=== PATIENT | female | born 1930 | race Caucasian/White ===

== ENCOUNTER 2019-02-27 16:33 | Inpatient (IN) | payer MEDICARE, BC ==
--- NOTE | 2019-02-27 18:42 | PCM.HP.2 ---
H&P History of Present Illness - General Date of Service: 02/27/19 Admit Problem/Dx: Admission Diagnosis/Problem Admission Diagnosis/Problem Impaired gait Source of Information: Patient, Family History Limitations: Reports: No Limitations - History of Present Illness Initial Comments - Free Text/Narative: in with c/o had an EGD performed in [place] today for a FB obstruction ( [place]). pt did not stop breathing or aspirate according to her dgtr. Her dgtr advised she is not able to manage the pt until her brother from OT comes in tomorrow. She is here as a swing bed overnight. She has a problem with her gait and her dgtr is concerned she may fall. no c/o cp or sob, no cough, no abd pain , no nv. is taking liquids without any problems Onset of Symptoms: Reports: Today Severity: Mild Context: Reports: Other (as above) Associated Symptoms: Reports: No Other Symptoms Past Medical History HEENT History: Reports: Impaired Vision, Sinusitis Musculoskeletal History: Reports: Arthritis, Fibromyalgia, Neck Pain, Chronic, Osteoarthritis Neurological History: Reports: Headaches, Chronic Social & Family History - Family History Family Medical History: Noncontributory H&P Review of Systems - Review of Systems: Review Of Systems: See Below General: Denies: No Symptoms, Fever, Chills HEENT: Reports: No Symptoms Pulmonary: Reports: No Symptoms. Denies: Shortness of Breath, Wheezing, Cough Cardiovascular: Reports: No Symptoms. Denies: Chest Pain Gastrointestinal: Reports: No Symptoms. Denies: Abdominal Pain, Nausea, Vomiting Musculoskeletal: Reports: No Symptoms Skin: Reports: No Symptoms. Denies: Rash Psychiatric: Reports: No Symptoms Neurological: Reports: No Symptoms Exam - Exam Exam: See Below - Vital Signs Weight: 46.72 kg - Exam General: Alert, Oriented, Cooperative Neck: Supple, Trachea Midline Lungs: Clear to Auscultation, Normal Respiratory Effort Cardiovascular: Regular Rate, Regular Rhythm, Systolic Murmur GI/Abdominal Exam: Normal Bowel Sounds, Soft, Non-Tender Back Exam: Normal Inspection, Full Range of Motion Extremities: Normal Inspection, Normal Range of Motion, Non-Tender, Normal Capillary Refill Peripheral Pulses: 2+: Radial (L), Radial (R) Skin: Warm, Dry, Intact Neuro Extensive - Mental Status: Alert, Oriented x3, Normal Mood/Affect Neuro Extensive - Motor, Sensory, Reflexes: Normal Gait (with help) Psychiatric: Alert, Normal Affect, Normal Mood Sepsis Event Note - Evaluation Sepsis Screening Result: No Definite Risk - Problem List (1) Gait instability SNOMED Code(s): 161416433, [id number] ICD Code: R26.81 - UNSTEADINESS ON FEET Status: Acute Priority: Medium Current Visit: Yes Problem List Initiated/Reviewed/Updated: Yes Orders Last 24hrs: Active Orders 24 hr Category Date Time Status Patient Status Manage Transfer [TRANSFER] Routine ADT 02/27/19 18:30 Active Patient Status [ADT] Routine ADT 02/27/19 18:32 Active Ambulate [RC] PER UNIT ROUTINE Care 02/27/19 18:33 Active Intake and Output [RC] PRN Care 02/27/19 18:32 Active Oxygen Therapy [RC] PRN Care 02/27/19 18:32 Active Up With Assistance [RC] ASDIRECTED Care 02/27/19 18:32 Active VTE/DVT Education [RC] PER UNIT ROUTINE Care 02/27/19 18:32 Active Vital Signs [RC] PER UNIT ROUTINE Care 02/27/19 18:32 Active Full Liquid Diet [DIET] Diet 02/28/19 Breakfast Active Resuscitation Status Routine Resus Stat 02/27/19 18:32 Ordered Assessment/Plan Comment:: will keep in a swing bed tonight and plan to dc home with family in am - Mortality Measure Prognosis:: Good
--- NOTE | 2019-02-28 09:02 | PCM.DCSUM1 ---
Discharge Summary - Hospital Course Free Text/Narrative:: in for gait instability to a swing bed until her son can help manage the pt at home Diagnosis: Stroke: No Modified Randolph Scale: No Symptoms at All Modified Yamilet Scale Score: 0 - Discharge Data Discharge Date: 02/28/19 Discharge Disposition: Home, Self-Care 01 Condition: Good - Referral to Home Health Primary Care Physician: Robel Alvarez MD - Discharge Diagnosis/Problem(s) (1) Gait instability SNOMED Code(s): 470083954, [id number] ICD Code: R26.81 - UNSTEADINESS ON FEET Status: Acute Priority: Medium Current Visit: Yes - Patient Instructions Diet: Heart Healthy Diet Activity: As Tolerated - Discharge Plan *PRESCRIPTION DRUG MONITORING PROGRAM REVIEWED*: Not Applicable *COPY OF PRESCRIPTION DRUG MONITORING REPORT IN PATIENT [place]: Not Applicable Home Medications: Home Meds ALPRAZolam [Alprazolam] 0.25 mg PO TID 02/27/19 [History] Gabapentin [Neurontin] 100 mg PO QID 02/27/19 [History] Oxygen Therapy Mode: Room Air - Discharge Summary/Plan Comment DC Time >30 min.: Yes - General Info Date of Service: 02/28/19 Admission Dx/Problem (Free Text: Admission Diagnosis/Problem Admission Diagnosis/Problem Impaired gait - Review of Systems General: Reports: No Symptoms. Denies: Fever HEENT: Reports: No Symptoms Pulmonary: Reports: No Symptoms. Denies: Shortness of Breath Cardiovascular: Reports: No Symptoms. Denies: Chest Pain Gastrointestinal: Reports: No Symptoms. Denies: Abdominal Pain, Nausea, Vomiting Musculoskeletal: Reports: No Symptoms Skin: Reports: No Symptoms Neurological: Reports: No Symptoms Psychiatric: Reports: No Symptoms - Patient Data Weight - Most Recent: 46.72 kg Lab Results - Last 24 hrs: Laboratory Results - last 24 hr 02/28/19 Range/Units 07:00 POC Glucose 152 H (75-105) mg/dl - Exam General: Reports: Alert, Oriented Neck: Reports: Supple Lungs: Reports: Clear to Auscultation, Normal Respiratory Effort Cardiovascular: Reports: Regular Rate, Regular Rhythm, Murmurs GI/Abdominal Exam: Soft, Non-Tender Back Exam: Reports: Normal Inspection, Full Range of Motion Extremities: Normal Inspection, Normal Range of Motion, Non-Tender, Normal Capillary Refill Skin: Reports: Warm, Dry, Intact Neurological: Reports: No New Focal Deficit Psy/Mental Status: Reports: Alert, Normal Affect, Normal Mood
== END 2019-02-28 12:00 | disposition home or self-care (01) | DRG 93 ==
LOC: UNDOADMIN 16:33 → CC.MS 16:33 → UNDODISIN 02-28 12:00
PROVIDERS: ADMIT Nurse Practitioner; ATTEND Family Medicine
DX: R26.81 Unsteadiness on feet (principal); H54.7 Unspecified visual loss; M79.7 Fibromyalgia; G89.29 Other chronic pain; M54.2 Cervicalgia; M19.90 Unspecified osteoarthritis, unspecified site
CPT/HCPCS: 82962

== ENCOUNTER 2019-04-30 10:32 | Inpatient (IN) | payer MEDICARE, BC ==
[2019-04-30] MEDS ORDERED: Sodium Chloride 0.9% 10 ML Syringe FLUSH PRN (10:33)
[2019-04-30 11:48] LABS: CHLORIDE,CL 93 mEq/L (98-106); SODIUM,NA 126 mEq/L (136-145)
--- NOTE | 2019-04-30 12:49 | EDM.PDOC ---
ED HPI GENERAL MEDICAL PROBLEM - General Chief Complaint: Neuro Symptoms/Deficits Stated Complaint: lethargy Time Seen by Provider: 04/30/19 10:32 Source of Information: Reports: Patient, Family, Long Term Records History Limitations: Reports: Other (patient is hard of hearing, does answer questions appropriately when asked) - History of Present Illness INITIAL COMMENTS - FREE TEXT/NARRATIVE: Patient presents to ER per EMS with complaints of lethargy, "dazed". Staff at [facility] reports she was dazed, staring off and not responding as well as per her usual. EMS reports does answer questions appropriately, has equal strengths but is lethargic. On arrival, patient is lethargic. Complains of being cold when asked. Complains of neck pain. Denies chest pain, shortness of breath or nausea. Family reports she has recently been recovering from influenza but was doing much better, was walking around and eating and drinking well. Now seems very weak and sleepy. No cough. No fevers but patient is shaking from feeling cold. Onset: Today, Sudden Duration: Hour(s):, Constant Location: Reports: Generalized Quality: Reports: Ache Severity: Mild Associated Symptoms: Reports: Fever/Chills, Weakness. Denies: Confusion, Chest Pain, Cough, Loss of Appetite, Nausea/Vomiting, Shortness of Breath Posterior Neck Pain Score (Numeric/FACES): 4 - Related Data Allergies Allergy/AdvReac Type Severity Reaction Status Date / Time Unable to Assess Allergy Unverified 02/27/19 18:51 Home Meds: Home Meds ALPRAZolam [Alprazolam] 0.25 mg PO TID 02/27/19 [History] Gabapentin [Neurontin] 300 mg PO BID 02/27/19 [History] Albuterol Sulfate [Proair Digihaler] 2 puff INH Q4H PRN 04/30/19 [History] Arformoterol [Brovana] 1 inh INH BID 04/30/19 [History] Ascorbate Calcium [Vitamin C] 500 mg PO BID 04/30/19 [History] Budesonide [Pulmicort] 1 inh INH BID 04/30/19 [History] Calcium Carbonate/Vitamin D3 [Calcium Carb 500 MG] 1,500 mg PO DAILY 04/30/19 [ History] Cholecalciferol (Vitamin D3) [Vitamin D3] 1 cap PO DAILY 04/30/19 [History] Cimetidine 1 tab PO TIDAC 04/30/19 [History] Lutein Extract/Zeaxanthin Ext [Lutein 15 MG Softgel] 1 tab PO DAILY 04/30/19 [ History] Magnesium Oxide [Magnesium] 2 tab PO DAILY 04/30/19 [History] Montelukast [Singulair] 10 mg PO BEDTIME 04/30/19 [History] [place]-3/DHA/Epa/Fish Oil [[place]-3 Fish Oil EC 1,000 mg] 1 cap PO DAILY 04/30/19 [History] Ranitidine [Zantac] 150 mg PO DAILY PRN 04/30/19 [History] diphenhydrAMINE [Benadryl] 25 mg PO Q6H PRN 04/30/19 [History] trandolapriL [Trandolapril] 1 tab PO BEDTIME 04/30/19 [History] Past Medical History HEENT History: Reports: Impaired Vision, Sinusitis Musculoskeletal History: Reports: Arthritis, Fibromyalgia, Neck Pain, Chronic, Osteoarthritis Neurological History: Reports: Headaches, Chronic - Infectious Disease History Infectious Disease History: Reports: Influenza Social & Family History - Family History Family Medical History: Noncontributory - Tobacco Use Smoking Status *Q: Never Smoker - Recreational Drug Use Recreational Drug Use: No ED ROS GENERAL - Review of Systems Review Of Systems: See Below Constitutional: Reports: Chills, Malaise, Weakness, Fatigue, Decreased Appetite (decreased appetite today). Denies: Fever HEENT: Reports: Rhinitis. Denies: Ear Pain, Throat Swelling Respiratory: Denies: Shortness of Breath, Cough Cardiovascular: Denies: Chest Pain, Edema, Lightheadedness Endocrine: Reports: Fatigue GI/Abdominal: Denies: Abdominal Pain : Reports: No Symptoms Musculoskeletal: Reports: Neck Pain Skin: Reports: Bruising (right leg from fall several days ago) Neurological: Reports: Difficulty Walking, Weakness. Denies: Dizziness, Headache, Syncope - Physical Exam Exam: See Below Exam Limited By: No Limitations General Appearance: WD/WN, No Apparent Distress, Lethargic Eye Exam: Bilateral Eye: EOMI, PERRL Ears: Normal External Exam, Normal TMs Nose: Normal Inspection, Normal Mucosa, No Blood Throat/Mouth: Normal Inspection, Normal Oropharynx Head Exam: Normocephalic Neck: Normal Inspection, Supple, Non-Tender Respiratory/Chest: No Respiratory Distress, Lungs Clear, Normal Breath Sounds Cardiovascular: Regular Rate, Rhythm GI/Abdominal: Normal Bowel Sounds, Soft, Non-Tender Neuro Exam (Abbreviated): Oriented Extremities: Other (right knee swollen from recent fall) Skin Exam: Warm, Dry, Ecchymosis (right thigh) Course - Vital Signs Last Recorded V/S: Last Vital Signs Temp 98.0 F 04/30/19 11:28 Pulse 84 04/30/19 11:28 Resp 18 04/30/19 11:28 BP 156/75 H 04/30/19 11:28 Pulse Ox 97 04/30/19 11:28 - Orders/Labs/Meds Orders: Active Orders 24 hr Category Date Time Status Chest 1V Frontal [CR] Stat Exams 04/30/19 10:33 Ordered Head wo Cont [CT] Stat Exams 04/30/19 10:36 Taken CULTURE BLOOD [BC] Stat Lab 04/30/19 11:05 Results CULTURE BLOOD [BC] Stat Lab 04/30/19 11:15 Received Sodium Chloride 0.9% [Normal Saline] 1,000 ml Med 04/30/19 10:45 Active IV ASDIRECTED Sodium Chloride 0.9% [Saline Flush] Med 04/30/19 10:33 Active 10 ml FLUSH ASDIRECTED PRN Blood Culture x2 Reflex Set [OM.PC] Stat Oth 04/30/19 10:33 Ordered Saline Lock Insert [OM.PC] Stat Oth 04/30/19 10:33 Ordered Medication Orders Sodium Chloride (Normal Saline) 1,000 mls @ 125 mls/hr IV ASDIRECTED YESIKA Sodium Chloride (Saline Flush) 10 ml FLUSH ASDIRECTED PRN PRN Reason: Keep Vein Open Labs: Laboratory Tests 04/30/19 04/30/19 04/30/19 Range/Units 10:33 10:33 10:33 WBC 6.7 (5.0-10.0) 10^3/uL RBC 3.74 L (4.00-5.50) 10^6/uL Hgb 11.7 L (12.0-16.0) g/dL Hct 34.1 L (37.0-47.0) % MCV 91.2 (82.0-94.0) fL MCH 31.3 (27.0-32.0) pg MCHC 34.3 (33.0-38.0) g/dL RDW Coeff of Kathryn 12.9 (11.0-15.0) % Plt Count 276 (150-400) 10^3/uL Add Manual Diff Yes Neutrophils % (Manual) 73 (35-85) % Lymphocytes % (Manual) 11 L (21-55) % Monocytes % (Manual) 15 H (2-12) % Eosinophils % (Manual) 1 (0-5) % Sodium 126 L (136-145) mEq/L Potassium 4.1 (3.5-5.0) mEq/L Chloride 93 L (98-106) mEq/L Carbon Dioxide 24 (21-32) mmol/L BUN 11 (7-18) mg/dL Creatinine 0.8 (0.6-1.0) mg/dL Est Cr Clr Drug Dosing 34.81 mL/min Estimated GFR (MDRD) > 60 (>=60) mL/min Glucose 99 (75-99) mg/dL Lactic Acid (0.4-2.0) mmol/L Calcium 8.2 L (8.4-10.1) mg/dL Total Bilirubin 0.8 (0.0-1.0) mg/dL AST 27 (15-37) U/L ALT 23 (12-78) U/L Alkaline Phosphatase 87 (46-116) U/L Troponin I < 0.017 (0.00-0.06) ng/mL C-Reactive Protein 11.0 H (0.2-0.8) mg/dL Total Protein 6.4 (6.4-8.2) g/dL Albumin 2.7 L (3.4-5.0) g/dL Urine Color Yellow (YELLOW) Urine Appearance Clear (CLEAR) Urine pH 6.5 (4.5-8.0) Ur Specific [place] 1.015 (1.003-1.020) Urine Protein Negative (NEGATIVE) mg/dL Urine Glucose (UA) Negative (NEGATIVE) mg/dL Urine Ketones Negative (NEGATIVE) mg/dL Urine Occult Blood Trace-intact H (NEGATIVE) Urine Nitrite Negative (NEGATIVE) Urine Bilirubin Negative (NEGATIVE) Urine Urobilinogen 0.2 (0.2-1.0) EU/dL Ur Leukocyte Esterase Small H (NEGATIVE) Urine RBC 0-5 (0-5) /HPF Urine WBC 0-5 (0-5) /HPF Ur Squamous Epith Cells Few H (NOT SEEN) /HPF 04/30/19 Range/Units 10:33 WBC (5.0-10.0) 10^3/uL RBC (4.00-5.50) 10^6/uL Hgb (12.0-16.0) g/dL Hct (37.0-47.0) % MCV (82.0-94.0) fL MCH (27.0-32.0) pg MCHC (33.0-38.0) g/dL RDW Coeff of Kathryn (11.0-15.0) % Plt Count (150-400) 10^3/uL Add Manual Diff Neutrophils % (Manual) (35-85) % Lymphocytes % (Manual) (21-55) % Monocytes % (Manual) (2-12) % Eosinophils % (Manual) (0-5) % Sodium (136-145) mEq/L Potassium (3.5-5.0) mEq/L Chloride (98-106) mEq/L Carbon Dioxide (21-32) mmol/L BUN (7-18) mg/dL Creatinine (0.6-1.0) mg/dL Est Cr Clr Drug Dosing mL/min Estimated GFR (MDRD) (>=60) mL/min Glucose (75-99) mg/dL Lactic Acid 1.0 (0.4-2.0) mmol/L Calcium (8.4-10.1) mg/dL Total Bilirubin (0.0-1.0) mg/dL AST (15-37) U/L ALT (12-78) U/L Alkaline Phosphatase (46-116) U/L Troponin I (0.00-0.06) ng/mL C-Reactive Protein (0.2-0.8) mg/dL Total Protein (6.4-8.2) g/dL Albumin (3.4-5.0) g/dL Urine Color (YELLOW) Urine Appearance (CLEAR) Urine pH (4.5-8.0) Ur Specific [place] (1.003-1.020) Urine Protein (NEGATIVE) mg/dL Urine Glucose (UA) (NEGATIVE) mg/dL Urine Ketones (NEGATIVE) mg/dL Urine Occult Blood (NEGATIVE) Urine Nitrite (NEGATIVE) Urine Bilirubin (NEGATIVE) Urine Urobilinogen (0.2-1.0) EU/dL Ur Leukocyte Esterase (NEGATIVE) Urine RBC (0-5) /HPF Urine WBC (0-5) /HPF Ur Squamous Epith Cells (NOT SEEN) /HPF Meds: Medications Generic Name Dose Route Start Last Admin Trade Name Freq PRN Reason Stop Dose Admin Sodium Chloride 1,000 mls @ 125 mls/hr 04/30/19 10:45 Normal Saline IV ASDIRECTED YESIKA Sodium Chloride 10 ml 04/30/19 10:33 Saline Flush FLUSH ASDIRECTED PRN Keep Vein Open - Re-Assessments/Exams Free Text/Narrative Re-Assessment/Exam: 04/30/19 Labs are noted. Sodium low at 126, trace of leukocytes in urine. Awaiting radiology report of chest. Head CT negative for acute changes except parasinus disease. Discussed with family. Will admit to observation for hyponatremia, lethargy. Start IV normal saline. Repeat labs in am. Departure - Departure Time of Disposition: 12:54 Disposition: Refer to Observation Condition: Fair Clinical Impression: Hyponatremia - Discharge Information *PRESCRIPTION DRUG MONITORING PROGRAM REVIEWED*: No *COPY OF PRESCRIPTION DRUG MONITORING REPORT IN PATIENT [place]: No Sepsis Event Note - Evaluation Sepsis Screening Result: No Definite Risk - Focused Exam Vital Signs: Vital Signs Temp Pulse Resp BP Pulse Ox 04/30/19 11:28 98.0 F 84 18 156/75 H 97 04/30/19 10:34 98.6 F 86 20 170/84 H 99 Date Exam was Performed: 04/30/19 Time Exam was Performed: 12:44 - Problem List & Annotations (1) Hyponatremia SNOMED Code(s): 20470132 Code(s): E87.1 - HYPO-OSMOLALITY AND HYPONATREMIA Status: Acute Priority : High Current Visit: Yes (2) Weakness SNOMED Code(s): 16436903 Code(s): R53.1 - WEAKNESS Status: Acute Current Visit: Yes (3) Sinusitis SNOMED Code(s): 10166963 Code(s): J32.9 - CHRONIC SINUSITIS, UNSPECIFIED Status: Acute Priority: Medium Current Visit: Yes Qualifiers: Sinusitis location: pansinusitis Chronicity: acute (4) Cystitis SNOMED Code(s): 55348814 Code(s): N30.90 - CYSTITIS, UNSPECIFIED WITHOUT HEMATURIA Status: Acute Priority: High Current Visit: Yes - Problem List Review Problem List Initiated/Reviewed/Updated: Yes - My Orders Last 24 Hours: My Active Orders 04/30/19 10:33 Chest 1V Frontal [CR] Stat Sodium Chloride 0.9% [Saline Flush] 10 ml FLUSH ASDIRECTED PRN Blood Culture x2 Reflex Set [OM.PC] Stat Saline Lock Insert [OM.PC] Stat 04/30/19 10:36 Head wo Cont [CT] Stat 04/30/19 10:45 Sodium Chloride 0.9% [Normal Saline] 1,000 ml IV ASDIRECTED 04/30/19 11:05 CULTURE BLOOD [BC] Stat 04/30/19 11:15 CULTURE BLOOD [BC] Stat - Assessment/Plan Admission H&P: Please use this note as an admission H&P Last 24 Hours: My Active Orders 04/30/19 10:33 Chest 1V Frontal [CR] Stat Sodium Chloride 0.9% [Saline Flush] 10 ml FLUSH ASDIRECTED PRN Blood Culture x2 Reflex Set [OM.PC] Stat Saline Lock Insert [OM.PC] Stat 04/30/19 10:36 Head wo Cont [CT] Stat 04/30/19 10:45 Sodium Chloride 0.9% [Normal Saline] 1,000 ml IV ASDIRECTED 04/30/19 11:05 CULTURE BLOOD [BC] Stat 04/30/19 11:15 CULTURE BLOOD [BC] Stat Assessment:: Hyponatremia Weakness Plan: ADmit observation. Start IV Normal saline. Rocephin for sinus infection and mild cystitis. Repeat labs in am.
[2019-04-30] MEDS ORDERED: Non-Formulary Medication 1 Each (Ranitidine [Zantac] 150 MG) PO PRN (13:04)
[2019-04-30] MEDS ORDERED: Ondansetron 4 MG Tab.DIS PO PRN (13:04)
[2019-04-30] MEDS ORDERED: Acetaminophen 325 MG Tab PO PRN (13:04)
[2019-04-30] MEDS ORDERED: Albuterol 8 GM Inhaler INH PRN (13:14)
[2019-04-30] MEDS ORDERED: ALPRAZolam 0.25 MG Tab PO SCH (14:00)
[2019-04-30] MEDS: cefTRIAXone 1 GM Vial IVPUSH SCH (14:24)
[2019-04-30] MEDS: Sodium Chloride 0.9% 1,000 ML IV SCH ×2 (14:25→22:20)
[2019-04-30] MEDS: Enoxaparin 40 MG/0.4 ML Syringe SUBCUT SCH (14:25)
[2019-04-30] MEDS: Gabapentin 100 MG Cap**OWN MED PO SCH ×2 (14:40→16:09)
[2019-04-30] MEDS: ALPRAZOLAM 0.25 MG PO SCH ×3 (14:41→19:43)
[2019-04-30] MEDS ORDERED: CIMETIDINE PO SCH (17:00)
[2019-04-30] MEDS: Gabapentin 300 MG Cap PO SCH (19:39)
[2019-04-30] MEDS: TRANDOLAPRIL 2 MG PO SCH (19:40)
[2019-04-30] MEDS: BUDESONIDE NAS SCH (19:45)
[2019-04-30] MEDS: BUDESONIDE 0.25 MG/2 ML NEB SCH (19:47)
[2019-04-30] MEDS: ARFORMOTEROL 15 MCG/2 ML NEB SCH (19:53)
[2019-04-30] MEDS ORDERED: Montelukast 10 MG Tab PO SCH (20:00)
[2019-05-01] MEDS: Gabapentin 100 MG Cap**OWN MED PO SCH ×3 (01:34→16:15)
[2019-05-01] MEDS: Sodium Chloride 0.9% 1,000 ML IV SCH ×3 (05:38→23:31)
[2019-05-01 07:47] LABS: CHLORIDE,CL 99 mEq/L (98-106); SODIUM,NA 132 mEq/L (136-145)
[2019-05-01] MEDS: Gabapentin 300 MG Cap PO SCH ×2 (07:58→20:01)
[2019-05-01] MEDS: BUDESONIDE 0.25 MG/2 ML NEB SCH ×2 (08:04→19:58)
[2019-05-01] MEDS: ARFORMOTEROL 15 MCG/2 ML NEB SCH ×2 (08:05→19:53)
[2019-05-01] MEDS: ALPRAZOLAM 0.25 MG PO SCH ×4 (08:06→20:04)
[2019-05-01] MEDS: BUDESONIDE NAS SCH ×2 (08:06→20:01)
[2019-05-01] MEDS ORDERED: ALPRAZolam 0.25 MG Tab PO PRN (08:14)
--- NOTE | 2019-05-01 09:58 | PCM.PN ---
- General Info Date of Service: 05/01/19 Admission Dx/Problem (Free Text): Hyponatremia Weakness Pansinusitis Functional Status: Reports: Tolerating Diet, Ambulating. Denies: Pain Controlled (complaining of a headache this am) - Review of Systems General: Reports: Fever, Weakness, Fatigue, Malaise HEENT: Reports: Headaches, Sinus Congestion. Denies: Sore Throat Pulmonary: Denies: Shortness of Breath, Cough Cardiovascular: Denies: Chest Pain, Edema, Lightheadedness Gastrointestinal: Denies: Abdominal Pain, Nausea, Vomiting Genitourinary: Reports: No Symptoms Musculoskeletal: Reports: Leg Pain Skin: Reports: Bruising (fell earlier in the week) Neurological: Reports: Weakness - Patient Data Vitals - Most Recent: Last Vital Signs Temp 99.1 F 05/01/19 04:00 Pulse 80 05/01/19 04:00 Resp 20 05/01/19 04:00 BP 163/60 H 05/01/19 04:00 Pulse Ox 97 05/01/19 04:00 Weight - Most Recent: 114 lb I&O - Last 24 Hours: Intake & Output 04/30/19 05/01/19 05/01/19 22:59 06:59 14:59 Intake Total 990 913 Balance 990 913 Lab Results Last 24 Hours: Laboratory Results - last 24 hr 04/30/19 04/30/19 04/30/19 Range/Units 10:33 10:33 10:33 WBC 6.7 (5.0-10.0) 10^3/uL RBC 3.74 L (4.00-5.50) 10^6/uL Hgb 11.7 L (12.0-16.0) g/dL Hct 34.1 L (37.0-47.0) % MCV 91.2 (82.0-94.0) fL MCH 31.3 (27.0-32.0) pg MCHC 34.3 (33.0-38.0) g/dL RDW Coeff of Kathryn 12.9 (11.0-15.0) % Plt Count 276 (150-400) 10^3/uL Neut % (Auto) (35-85) % Lymph % (Auto) (10-55) % [place] % (Auto) (0-16) % Eos % (Auto) (0-5) % Baso % (Auto) (0-3) % Neut # (Auto) (1.80-7.00) 10^3/uL Lymph # (Auto) (1.00-4.80) 10^3/uL [place] # (Auto) (0.00-0.80) 10^3/uL Eos # (Auto) (0.00-0.45) 10^3/uL Baso # (Auto) 10^3/uL Add Manual Diff Yes Neutrophils % (Manual) 73 (35-85) % Lymphocytes % (Manual) 11 L (21-55) % Monocytes % (Manual) 15 H (2-12) % Eosinophils % (Manual) 1 (0-5) % Sodium 126 L (136-145) mEq/L Potassium 4.1 (3.5-5.0) mEq/L Chloride 93 L (98-106) mEq/L Carbon Dioxide 24 (21-32) mmol/L BUN 11 (7-18) mg/dL Creatinine 0.8 (0.6-1.0) mg/dL Est Cr Clr Drug Dosing 34.81 mL/min Estimated GFR (MDRD) > 60 (>=60) mL/min Glucose 99 (75-99) mg/dL Lactic Acid (0.4-2.0) mmol/L Calcium 8.2 L (8.4-10.1) mg/dL Total Bilirubin 0.8 (0.0-1.0) mg/dL AST 27 (15-37) U/L ALT 23 (12-78) U/L Alkaline Phosphatase 87 (46-116) U/L Troponin I < 0.017 (0.00-0.06) ng/mL C-Reactive Protein 11.0 H (0.2-0.8) mg/dL Total Protein 6.4 (6.4-8.2) g/dL Albumin 2.7 L (3.4-5.0) g/dL Urine Color Yellow (YELLOW) Urine Appearance Clear (CLEAR) Urine pH 6.5 (4.5-8.0) Ur Specific [employer] 1.015 (1.003-1.020) Urine Protein Negative (NEGATIVE) mg/dL Urine Glucose (UA) Negative (NEGATIVE) mg/dL Urine Ketones Negative (NEGATIVE) mg/dL Urine Occult Blood Trace-intact H (NEGATIVE) Urine Nitrite Negative (NEGATIVE) Urine Bilirubin Negative (NEGATIVE) Urine Urobilinogen 0.2 (0.2-1.0) EU/dL Ur Leukocyte Esterase Small H (NEGATIVE) Urine RBC 0-5 (0-5) /HPF Urine WBC 0-5 (0-5) /HPF Ur Squamous Epith Cells Few H (NOT SEEN) /HPF 04/30/19 05/01/19 05/01/19 Range/Units 10:33 05:11 05:11 WBC 5.1 (5.0-10.0) 10^3/uL RBC 3.59 L (4.00-5.50) 10^6/uL Hgb 11.2 L (12.0-16.0) g/dL Hct 33.2 L (37.0-47.0) % MCV 92.5 (82.0-94.0) fL MCH 31.2 (27.0-32.0) pg MCHC 33.7 (33.0-38.0) g/dL RDW Coeff of Kathryn 13.0 (11.0-15.0) % Plt Count 333 (150-400) 10^3/uL Neut % (Auto) 57.4 (35-85) % Lymph % (Auto) 19.4 (10-55) % [place] % (Auto) 22.2 H (0-16) % Eos % (Auto) 0.8 (0-5) % Baso % (Auto) 0.2 (0-3) % Neut # (Auto) 2.93 (1.80-7.00) 10^3/uL Lymph # (Auto) 0.99 L (1.00-4.80) 10^3/uL [place] # (Auto) 1.13 H (0.00-0.80) 10^3/uL Eos # (Auto) 0.04 (0.00-0.45) 10^3/uL Baso # (Auto) 0.01 10^3/uL Add Manual Diff Neutrophils % (Manual) (35-85) % Lymphocytes % (Manual) (21-55) % Monocytes % (Manual) (2-12) % Eosinophils % (Manual) (0-5) % Sodium 132 L (136-145) mEq/L Potassium 4.0 (3.5-5.0) mEq/L Chloride 99 (98-106) mEq/L Carbon Dioxide 26 (21-32) mmol/L BUN 6 L (7-18) mg/dL Creatinine 0.7 (0.6-1.0) mg/dL Est Cr Clr Drug Dosing 45.35 mL/min Estimated GFR (MDRD) > 60 (>=60) mL/min Glucose 98 (75-99) mg/dL Lactic Acid 1.0 (0.4-2.0) mmol/L Calcium 8.0 L (8.4-10.1) mg/dL Total Bilirubin (0.0-1.0) mg/dL AST (15-37) U/L ALT (12-78) U/L Alkaline Phosphatase (46-116) U/L Troponin I (0.00-0.06) ng/mL C-Reactive Protein 9.9 H (0.2-0.8) mg/dL Total Protein (6.4-8.2) g/dL Albumin (3.4-5.0) g/dL Urine Color (YELLOW) Urine Appearance (CLEAR) Urine pH (4.5-8.0) Ur Specific [employer] (1.003-1.020) Urine Protein (NEGATIVE) mg/dL Urine Glucose (UA) (NEGATIVE) mg/dL Urine Ketones (NEGATIVE) mg/dL Urine Occult Blood (NEGATIVE) Urine Nitrite (NEGATIVE) Urine Bilirubin (NEGATIVE) Urine Urobilinogen (0.2-1.0) EU/dL Ur Leukocyte Esterase (NEGATIVE) Urine RBC (0-5) /HPF Urine WBC (0-5) /HPF Ur Squamous Epith Cells (NOT SEEN) /HPF Liu Results Last 24 Hours: Microbiology 04/30/19 11:05 Anaerobic Blood Culture - Final Blood - Venous Med Orders - Current: Current Medications Acetaminophen (Tylenol) 650 mg PO Q4H PRN PRN Reason: Pain (Mild 1-3)/fever Albuterol (Ventolin Hfa) 0 gm INH Q4H PRN PRN Reason: dyspnea Alprazolam (Xanax) 0.25 mg PO BEDTIME [facility] Last Admin: 04/30/19 19:43 Dose: 0.25 mg Alprazolam (Xanax) 0.125 mg PO TID@0800,1200,1600 [facility] Last Admin: 05/01/19 08:06 Dose: 0.125 mg Alprazolam (Xanax) 0.125 mg PO Q6H PRN PRN Reason: Anxiety Ceftriaxone Sodium (Rocephin) 1 gm IVPUSH Q24H [facility] Last Admin: 04/30/19 14:24 Dose: 1 gm Enoxaparin Sodium (Lovenox) 40 mg SUBCUT Q24H [facility] Last Admin: 04/30/19 14:25 Dose: 40 mg Gabapentin (Neurontin) 300 mg PO BID [facility] Last Admin: 05/01/19 07:58 Dose: 300 mg Gabapentin (Neurontin) 200 mg PO TID@0200,1200,1700 [facility] Last Admin: 05/01/19 01:34 Dose: 100 mg Sodium Chloride (Normal Saline) 1,000 mls @ 50 mls/hr IV ASDIRECTED [facility] Last Admin: 05/01/19 05:38 Dose: 125 mls/hr Montelukast Sodium (Singulair) 10 mg PO DAILY@1300 [facility] Trandolapril [ Trandolapril] 2mg Tab 0 tab PO BEDTIME [facility] Last Admin: 04/30/19 19:40 Dose: 0.5 tab Ondansetron HCl (Zofran Odt) 4 mg PO Q4H PRN PRN Reason: nausea, able to take PO (Arformoterol [ Brovana] 15mcg/2 Ml Inh. Evi.)*Pt Own Med* 0 each NEB BIDRT [facility] Last Admin: 05/01/19 08:05 Dose: 1 each (Budesonide [ Pulmicort] 0.25 Mg/2ml Inh)*Pt Own Med* 0 each NEB BIDRT [facility] Last Admin: 05/01/19 08:04 Dose: 1 each (Budesonide [ Pulmicort] For Nasal Rinse )*Pt Own Med* 0 each MENA BID [facility] Last Admin: 05/01/19 08:06 Dose: 1 each Discontinued Medications Alprazolam (Xanax) 0.25 mg PO TID [facility] Last Admin: 04/30/19 14:34 Dose: Not Given Montelukast Sodium (Singulair) 10 mg PO BEDTIME [facility] Last Admin: 04/30/19 14:44 Dose: 10 mg Non-Formulary Medication (Cimetidine [Cimetidine]) 1 tab PO TIDAC [facility] Last Admin: 04/30/19 17:10 Dose: Not Given Non-Formulary Medication (Ranitidine [Zantac]) 150 mg PO DAILY PRN PRN Reason: Heartburn Sodium Chloride (Saline Flush) 10 ml FLUSH ASDIRECTED PRN PRN Reason: Keep Vein Open - Exam General: Alert, Oriented HEENT: Mucous Membr. Moist/[place] Neck: Supple Lungs: Clear to Auscultation, Normal Respiratory Effort Cardiovascular: Regular Rate, Regular Rhythm GI/Abdominal Exam: Normal Bowel Sounds, Soft, Non-Tender Extremities: Other (patient has tenderness to right leg. Mild swelling and bruising at the knee from recent fall.) Skin: Warm, Dry, Ecchymosis Neurological: No New Focal Deficit Sepsis Event Note - Evaluation Sepsis Screening Result: No Definite Risk - Focused Exam Vital Signs: Vital Signs Temp Pulse Resp BP Pulse Ox 05/01/19 04:00 99.1 F 80 20 163/60 H 97 05/01/19 00:00 99.5 F 82 20 156/62 H 97 Date Exam was Performed: 05/01/19 Time Exam was Performed: 09:52 - Problem List & Annotations (1) Hyponatremia SNOMED Code(s): 85318018 Code(s): E87.1 - HYPO-OSMOLALITY AND HYPONATREMIA Status: Acute Priority : High Current Visit: Yes (2) Weakness SNOMED Code(s): 33340036 Code(s): R53.1 - WEAKNESS Status: Acute Priority: High Current Visit: Yes (3) Sinusitis SNOMED Code(s): 61646898 Code(s): J32.9 - CHRONIC SINUSITIS, UNSPECIFIED Status: Acute Priority: Medium Current Visit: Yes Qualifiers: Sinusitis location: pansinusitis Chronicity: acute (4) Cystitis SNOMED Code(s): 09655764 Code(s): N30.90 - CYSTITIS, UNSPECIFIED WITHOUT HEMATURIA Status: Acute Priority: High Current Visit: Yes (5) Palliative care patient SNOMED Code(s): 451319618 Code(s): Z51.5 - ENCOUNTER FOR PALLIATIVE CARE Status: Acute Priority: High Current Visit: Yes - Problem List Review Problem List Initiated/Reviewed/Updated: Yes - My Orders Last 24 Hours: My Active Orders 04/30/19 10:33 Chest 1V Frontal [CR] Stat 04/30/19 10:36 Head wo Cont [CT] Stat 04/30/19 10:45 Sodium Chloride 0.9% [Normal Saline] 1,000 ml IV ASDIRECTED 04/30/19 11:05 CULTURE BLOOD [BC] Stat 04/30/19 11:15 CULTURE BLOOD [BC] Stat 04/30/19 12:57 Resuscitation Status Routine 04/30/19 13:04 Cardiac Monitoring [RC] 0800,2000 Oxygen Therapy [RC] .PRN Up With Assistance [RC] ASDIRECTED Vital Signs [RC] 0800,1200,1600,2000,0000,0400 Acetaminophen [Tylenol] 650 mg PO Q4H PRN Ondansetron [Zofran ODT] 4 mg PO Q4H PRN 04/30/19 13:14 Albuterol [Ventolin HFA] 0 gm INH Q4H PRN 04/30/19 14:00 Enoxaparin [Lovenox] 40 mg SUBCUT Q24H cefTRIAXone [Rocephin] 1 gm IVPUSH Q24H 04/30/19 16:00 ALPRAZolam [Xanax] 0.125 mg PO TID@0800,1200,1600 04/30/19 17:00 Gabapentin [Neurontin] 200 mg PO TID@0200,1200,1700 04/30/19 20:00 ALPRAZolam [Xanax] 0.25 mg PO BEDTIME Gabapentin [Neurontin] 300 mg PO BID Patient's Own Medication [Ptom] 0 each MENA BID Patient's Own Medication [Ptom] 0 each NEB BIDRT Patient's Own Medication [Ptom] 0 each NEB BIDRT trandolapriL [Trandolapril] 0 tab PO BEDTIME 04/30/19 Lunch Regular Diet [DIET] 05/01/19 08:14 ALPRAZolam [Xanax] 0.125 mg PO Q6H PRN 05/01/19 08:15 Patient Status [ADT] Routine 05/01/19 13:00 Montelukast [Singulair] 10 mg PO DAILY@1300 05/02/19 05:11 BASIC METABOLIC PANEL,BMP [CHEM] AM C-REACTIVE PROTEIN [CHEM] AM CBC WITH AUTO DIFF [HEME] AM - Assessment Assessment:: Hyponatremia Weakness Pansinusitis Mild Cystitis Palliative Care Patient. - Plan Plan:: Patient more alert this am but states still feels fatigue and "so weak". Is ambulating to the bathroom with her walker. Has headache today in the frontal and parietal areas. CT scan done yesterday did show pansinusitis. Is currently on Rocephin. Lung sounds are clear. Has swelling, bruising and tenderness to right leg from previous fall 5 days ago. Recovering also from influenza. Sodium today has improved to 132. CRP down to 9.9. Temps high of 100.4 during the night. Will transfer to acute inpatient due to ongoing weakness, hyponatremia and temps. Repeat labs in am. Decrease IV fluids to 50 ml/hr. Continue Rocephin.
[2019-05-01] MEDS ORDERED: Acetaminophen 325 MG Tab PO PRN (10:15)
[2019-05-01] MEDS ORDERED: Montelukast 10 MG Tab PO SCH (13:00)
[2019-05-01] MEDS: cefTRIAXone 1 GM Vial IVPUSH SCH (14:01)
[2019-05-01] MEDS: Enoxaparin 40 MG/0.4 ML Syringe SUBCUT SCH (14:01)
[2019-05-01] MEDS: ACETAMINOPHEN 325 MG PO PRN ×2 (14:10→23:31)
[2019-05-01] MEDS: TRANDOLAPRIL 2 MG PO SCH (20:02)
[2019-05-02] MEDS: Gabapentin 100 MG Cap**OWN MED PO SCH (02:46)
[2019-05-02 07:32] LABS: CHLORIDE,CL 101 mEq/L (98-106); SODIUM,NA 133 mEq/L (136-145)
[2019-05-02] MEDS: Gabapentin 300 MG Cap PO SCH (07:54)
[2019-05-02] MEDS: ARFORMOTEROL 15 MCG/2 ML NEB SCH (07:55)
[2019-05-02] MEDS: BUDESONIDE 0.25 MG/2 ML NEB SCH (07:55)
[2019-05-02] MEDS: ALPRAZOLAM 0.25 MG PO SCH (07:57)
[2019-05-02] MEDS ORDERED: BUDESONIDE NAS SCH (08:00)
--- NOTE | 2019-05-02 08:57 | PCM.DCSUM1 ---
Discharge Summary - Hospital Course Free Text/Narrative:: see previous notes for details, the pt did have mild low sodium and today the labs were repeated and is normal, BCx are neg, no fever, the pt did c/o weakness yesterday but today advised she feel much better, The pt can be dc home today and continue current home meds, will f/u with pcp this week HPI Initial Comments: AMS and weakness Diagnosis: Stroke: No Modified [place] Scale: No Symptoms at All Modified [place] Scale Score: 0 - Discharge Data Discharge Date: 05/02/19 Discharge Disposition: Home, Self-Care 01 Condition: Fair - Referral to Home Health Primary Care Physician: LOBO Mcgregor - Patient Instructions Diet: Heart Healthy Diet Showering/Bathing: July Shower Notify Provider of: Fever, Nausea and/or Vomiting - Discharge Plan *PRESCRIPTION DRUG MONITORING PROGRAM REVIEWED*: No *COPY OF PRESCRIPTION DRUG MONITORING REPORT IN PATIENT [place]: No Home Medications: Home Meds ALPRAZolam [Alprazolam] 0.125 mg PO TID 02/27/19 [History] Gabapentin [Neurontin] 300 mg PO BID 02/27/19 [History] ALPRAZolam [Alprazolam] 0.25 mg PO BEDTIME 04/30/19 [History] Albuterol Sulfate [Proair Digihaler] 2 puff INH Q4H PRN 04/30/19 [History] Arformoterol [Brovana] 1 inh INH BID 04/30/19 [History] Ascorbate Calcium [Vitamin C] 500 mg PO BID 04/30/19 [History] Budesonide [Pulmicort] 0.125 mg NS BID 04/30/19 [History] Budesonide [Pulmicort] 1 inh INH BID 04/30/19 [History] Calcium Carbonate/Vitamin D3 [Calcium Carb 500 MG] 1,500 mg PO DAILY 04/30/19 [ History] Cholecalciferol (Vitamin D3) [Vitamin D3] 1 cap PO DAILY 04/30/19 [History] Cimetidine 1 tab PO TIDAC 04/30/19 [History] Gabapentin [Neurontin] 200 mg PO TID 04/30/19 [History] Lutein Extract/Zeaxanthin Ext [Lutein 15 MG Softgel] 1 tab PO DAILY 04/30/19 [ History] Magnesium Oxide [Magnesium] 2 tab PO DAILY 04/30/19 [History] Montelukast [Singulair] 10 mg PO BEDTIME 04/30/19 [History] Point-3/DHA/Epa/Fish Oil [Point-3 Fish Oil EC 1,000 mg] 1 cap PO DAILY 04/30/19 [History] Ranitidine [Zantac] 150 mg PO DAILY PRN 04/30/19 [History] diphenhydrAMINE [Benadryl] 25 mg PO Q6H PRN 04/30/19 [History] trandolapriL [Trandolapril] 1 tab PO BEDTIME 04/30/19 [History] Oxygen Therapy Mode: Room Air Patient Handouts: Hyponatremia, Sinusitis, Adult Forms: ED Department Discharge Referrals: Kalyani Villar PA [Primary Care Provider] - - Discharge Summary/Plan Comment DC Time >30 min.: Yes - General Info Date of Service: 05/02/19 Admission Dx/Problem (Free Text: Hyponatremia Weakness Pansinusitis Functional Status: Reports: Pain Controlled, Tolerating Diet, Ambulating, Urinating. Denies: New Symptoms - Review of Systems General: Reports: No Symptoms, Other (advised feeling better today). Denies: Fever HEENT: Reports: No Symptoms Pulmonary: Reports: No Symptoms. Denies: Shortness of Breath, Cough Cardiovascular: Reports: No Symptoms Gastrointestinal: Reports: No Symptoms. Denies: Abdominal Pain, Nausea, Vomiting Musculoskeletal: Reports: No Symptoms Skin: Reports: No Symptoms. Denies: Bruising, Rash Neurological: Reports: No Symptoms. Denies: Confusion, Dizziness, Headache Psychiatric: Reports: No Symptoms - Patient Data Vitals - Most Recent: Last Vital Signs Temp 36.5 C 05/02/19 04:00 Pulse 76 05/02/19 04:00 Resp 16 05/02/19 04:00 BP 149/54 H 05/02/19 04:00 Pulse Ox 97 05/02/19 04:00 Weight - Most Recent: 51.71 kg I&O - Last 24 hours: Intake & Output 05/01/19 05/02/19 05/02/19 22:59 06:59 14:59 Intake Total 1000 Balance 1000 Lab Results - Last 24 hrs: Laboratory Results - last 24 hr 05/02/19 05/02/19 Range/Units 06:55 06:55 WBC 5.8 (5.0-10.0) 10^3/uL RBC 3.40 L (4.00-5.50) 10^6/uL Hgb 10.5 L (12.0-16.0) g/dL Hct 31.5 L (37.0-47.0) % MCV 92.6 (82.0-94.0) fL MCH 30.9 (27.0-32.0) pg MCHC 33.3 (33.0-38.0) g/dL RDW Coeff of Kathryn 13.0 (11.0-15.0) % Plt Count 372 (150-400) 10^3/uL Neut % (Auto) 57.6 (35-85) % Lymph % (Auto) 22.3 (10-55) % [place] % (Auto) 18.2 H (0-16) % Eos % (Auto) 1.7 (0-5) % Baso % (Auto) 0.2 (0-3) % Neut # (Auto) 3.33 (1.80-7.00) 10^3/uL Lymph # (Auto) 1.29 (1.00-4.80) 10^3/uL [place] # (Auto) 1.05 H (0.00-0.80) 10^3/uL Eos # (Auto) 0.10 (0.00-0.45) 10^3/uL Baso # (Auto) 0.01 10^3/uL Sodium 133 L (136-145) mEq/L Potassium 3.7 (3.5-5.0) mEq/L Chloride 101 (98-106) mEq/L Carbon Dioxide 26 (21-32) mmol/L BUN 4 L (7-18) mg/dL Creatinine 0.7 (0.6-1.0) mg/dL Est Cr Clr Drug Dosing 45.35 mL/min Estimated GFR (MDRD) > 60 (>=60) mL/min Glucose 94 (75-99) mg/dL Calcium 8.2 L (8.4-10.1) mg/dL C-Reactive Protein 10.0 H (0.2-0.8) mg/dL [facility] Results - Last 24 hrs: Microbiology 04/30/19 11:15 Aerobic Blood Culture - Preliminary Blood - Venous - Lab Draw NO GROWTH AFTER 1 DAY Anaerobic Blood Culture - Preliminary NO GROWTH AFTER 1 DAY 04/30/19 11:05 Aerobic Blood Culture - Preliminary Blood - Venous NO GROWTH AFTER 1 DAY Anaerobic Blood Culture - Final Med Orders - Current: Current Medications Acetaminophen (Tylenol) 325 mg PO Q4H PRN PRN Reason: Pain (Mild 1-3)/fever Last Admin: 05/01/19 23:31 Dose: 325 mg Albuterol (Ventolin Hfa) 0 gm INH Q4H PRN PRN Reason: dyspnea Alprazolam (Xanax) 0.25 mg PO BEDTIME [facility] Last Admin: 05/01/19 20:04 Dose: 0.25 mg Alprazolam (Xanax) 0.125 mg PO TID@0800,1200,1600 [facility] Last Admin: 05/02/19 07:57 Dose: 0.125 mg Alprazolam (Xanax) 0.125 mg PO Q6H PRN PRN Reason: Anxiety Ceftriaxone Sodium (Rocephin) 1 gm IVPUSH Q24H [facility] Last Admin: 05/01/19 14:01 Dose: 1 gm Enoxaparin Sodium (Lovenox) 40 mg SUBCUT Q24H [facility] Last Admin: 05/01/19 14:01 Dose: 40 mg Gabapentin (Neurontin) 300 mg PO BID [facility] Last Admin: 05/02/19 07:54 Dose: 300 mg Gabapentin (Neurontin) 200 mg PO TID@0200,1200,1700 [facility] Last Admin: 05/02/19 02:46 Dose: 200 mg Sodium Chloride (Normal Saline) 1,000 mls @ 50 mls/hr IV ASDIRECTED [facility] Last Admin: 05/01/19 23:31 Dose: 125 mls/hr Montelukast Sodium (Singulair) 10 mg PO DAILY@1300 [facility] Last Admin: 05/01/19 12:32 Dose: 10 mg Trandolapril [ Trandolapril] 2mg Tab 0 tab PO BEDTIME [facility] Last Admin: 05/01/19 20:02 Dose: 0.5 tab Ondansetron HCl (Zofran Odt) 4 mg PO Q4H PRN PRN Reason: nausea, able to take PO (Arformoterol [ Brovana] 15mcg/2 Ml Inh. Evi.)*Pt Own Med* 0 each NEB BIDRT [facility] Last Admin: 05/02/19 07:55 Dose: 1 each (Budesonide [ Pulmicort] 0.25 Mg/2ml Inh)*Pt Own Med* 0 each NEB BIDRT [facility] Last Admin: 05/02/19 07:55 Dose: 1 each (Budesonide [ Pulmicort] For Nasal Rinse )*Pt Own Med* 0 each MENA 0800,1700 [facility] Last Admin: 05/02/19 07:56 Dose: 1 each Discontinued Medications Acetaminophen (Tylenol) 650 mg PO Q4H PRN PRN Reason: Pain (Mild 1-3)/fever Acetaminophen (Tylenol) 325 mg PO Q4H PRN PRN Reason: Pain (Mild 1-3)/fever Alprazolam (Xanax) 0.25 mg PO TID [facility] Last Admin: 04/30/19 14:34 Dose: Not Given Montelukast Sodium (Singulair) 10 mg PO BEDTIME [facility] Last Admin: 04/30/19 14:44 Dose: 10 mg Non-Formulary Medication (Cimetidine [Cimetidine]) 1 tab PO TIDAC [facility] Last Admin: 04/30/19 17:10 Dose: Not Given Non-Formulary Medication (Ranitidine [Zantac]) 150 mg PO DAILY PRN PRN Reason: Heartburn (Budesonide [ Pulmicort] For Nasal Rinse )*Pt Own Med* 0 each MENA BID [facility] Last Admin: 05/01/19 20:01 Dose: Not Given Sodium Chloride (Saline Flush) 10 ml FLUSH ASDIRECTED PRN PRN Reason: Keep Vein Open - Exam Quality Assessment: Denies: Supplemental Oxygen General: Reports: Alert, Oriented, Cooperative Neck: Reports: Supple, Trachea Midline Lungs: Reports: Clear to Auscultation, Normal Respiratory Effort Cardiovascular: Reports: Regular Rate, Regular Rhythm, Murmurs GI/Abdominal Exam: Normal Bowel Sounds, Soft, Non-Tender Back Exam: Reports: Normal Inspection, Full Range of Motion Extremities: Normal Inspection, Normal Range of Motion, Non-Tender, No Pedal Edema, Normal Capillary Refill Skin: Reports: Warm, Dry, Intact Neurological: Reports: No New Focal Deficit Psy/Mental Status: Reports: Alert, Normal Affect, Normal Mood
[2019-05-02] MEDS: cefTRIAXone 1 GM Vial IVPUSH SCH (10:05)
== END 2019-05-02 10:40 | disposition home or self-care (01) | DRG 641 ==
LOC: CC.ED 10:32 → UNDOADMOB 12:28 → CC.MS 12:28 → OBSVTOIN 05-01 08:15
PROVIDERS: ADMIT Physician Assistant Medical; ATTEND Family Medicine
DX: E87.1 Hypo-osmolality and hyponatremia (principal); R53.1 Weakness; Z51.5 Encounter for palliative care; J32.4 Chronic pansinusitis; H54.7 Unspecified visual loss; N30.90 Cystitis, unspecified without hematuria; M79.7 Fibromyalgia; G89.29 Other chronic pain; M54.2 Cervicalgia; Z79.51 Long term (current) use of inhaled steroids; M19.90 Unspecified osteoarthritis, unspecified site; Z79.899 Other long term (current) drug therapy
CPT/HCPCS: 36415; 70450; 71045; 80048; 80053; 81001; 83605; 84484; 85025; 86140; 87040; 93005; 93010; 94640; 96361; 96372; 96374; 99285-25; A9270-GY; G0378; J0696; J1650; J7030